=== PATIENT | female | born 1965 | race Caucasian/White ===

== ENCOUNTER 2017-01-10 04:14 | Emergency (ER) | payer OTHER, MEDICARE ==
[~2017-01-10] VITALS: Ht 154.9 cm; Wt 49.9 kg
[2017-01-10 04:15] VITALS: BP 133/91; PULSE 112; RESP 20; TEMP 98.5; O2SAT 96
--- NOTE | 2017-01-10 04:15 | NUR ---
Patient to ER bed 5 to gown for evaluation. Side rails up. Report given to CHRISTY MANDEL.
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
--- NOTE | 2017-01-10 04:45 | NUR ---
Radiology at bedside for xray.
--- NOTE | 2017-01-10 04:51 | NUR ---
Dr. Awan at bedside evaluating patient.
[2017-01-10] MEDS ORDERED: DIPHENHYDRAMINE INJ 50 MG/ML VIAL IM ONE (05:00)
[2017-01-10] MEDS ORDERED: LORazepam 2 MG/ML VIAL (FOR ER USE) IM ONE (05:00)
--- NOTE | 2017-01-10 05:05 | NUR ---
Pt went bathroom and would not come out after several requests.
--- NOTE | 2017-01-10 05:07 | NUR ---
Pt came out of bathroom and pacing back and forth shouting and looking for exit. Then walked further inside the hospital and then walked out through exit doors. Staff ran after pt explaining to give medication but patient continued going towards exit. After 2 minutes patient returned to room. Security and 2 RNs and MT were in the room while medication was being given.
--- NOTE | 2017-01-10 06:15 | NUR ---
Patient resting quietly, very calm at this time. No acute distress noted. Vital signs within normal range.
--- NOTE | 2017-01-10 08:01 | NUR ---
pt stable and resting, steady rise and fall of chest noted while breathing.
--- NOTE | 2017-01-10 08:15 | NUR ---
Patient sleeping, wakens to name. Denies suicidal or homicidal ideation.
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
--- NOTE | 2017-01-10 09:20 | NUR ---
Called social service manager to ask if could come speak w/ pt regarding discharge plans, [facility] to come.
--- NOTE | 2017-01-10 09:34 | NUR ---
behavioral services tech at bedside
--- NOTE | 2017-01-10 09:45 | NUR ---
Per social service personnel, will come back to speak to pt when is more awake. Pt in stable condition.
--- NOTE | 2017-01-10 10:47 | NUR ---
JOINER NOTE: Pt referred to Ironing Worker by Nurse, Milly, due to pt's homelessness. THERMOFORMING MACHINE OPERATOR attempted to meet with pt twice at bedside. Pt did not respond to her name multiple times. THERMOFORMING MACHINE OPERATOR placed homeless assistance, local [facility] clinics, local food duff, outpatient mental health, and transportation resources near pt's bedside. ER staff to contact Ironing Worker once pt becomes more alert. Ironing Worker will continue to remain available and follow up as needed.
--- NOTE | 2017-01-10 11:13 | NUR ---
Patient sleeping, wakens to name, alert but lethargic, stable condition.
--- NOTE | 2017-01-10 11:29 | NUR ---
Patient is asleep in bed arousible to verbal. Patient is oriented when awoken, not able state where she plans to go after discharge. Director Of Rehabilitative Services repaged. Assumed care of patient.
--- NOTE | 2017-01-10 12:00 | NUR ---
TURRET LATHE TENDER FOLLOW UP NOTE: PIGMENT GRINDER met with pt at bedside for third attempt. Pt appears to be more alert at this time. Pt's speech is garbled and pt provided brief answers to questions asked. Pt denied any recent alcohol or drug use. PIGMENT GRINDER attempted to discuss pt's mental health history, but pt did not respond to any related questions. Pt states that she would like a taxi voucher to go to her mother's house ([address] [place] [id number]) upon discharge. PIGMENT GRINDER confirmed that pt had homeless resources provided to her by PIGMENT GRINDER. Pt did not express any other needs or concerns at this time. PIGMENT GRINDER updated pt's Nurse, Tristan, regarding conversation with pt. PIGMENT GRINDER obtained taxi voucher from [employer] and gave voucher to pt's Nurse. PIGMENT GRINDER placed Homeless Waiver on pt's chart to be completed upon discharge. There does not appear to be any further Social Service interventions required at this time.
--- NOTE | 2017-01-10 12:15 | NUR ---
Patient awoken to verbal and oriented when awake, however patient immediantly returns to sleep. Patient is not alert enough to discharge at this time.
--- NOTE | 2017-01-10 13:45 | NUR ---
Patient remains asleep at this time. Endorsed care to Radha MANDEL.
--- NOTE | 2017-01-10 14:10 | NUR ---
Pt resting in bed at this time, eyes closed, respirations even and unlabored, no s/s of distress.
--- NOTE | 2017-01-10 15:55 | NUR ---
Patient is awake and sitting up in [place] eating lunch. Vitals signs taken. Will continue to monitor.
--- NOTE | 2017-01-10 18:04 | NUR ---
Patient is ambulatory with steady gait agrees to discharge to [place] [facility]. States that she left her belonging there and this is the area where she resisdes. Taxi is enroute for roll picker. Patient refused placment in jail. Patient ID band removed.
[2017-01-10 19:09] VITALS: BP 150/97; PULSE 108; RESP 16; TEMP 98; O2SAT 97
== END 2017-01-10 19:09 | disposition home or self-care (01) ==
LOC: SED 04:14
DX: S62.112A Displaced fracture of triquetrum [cuneiform] bone, left wrist, initial encounter for closed fracture (principal); I10 Essential (primary) hypertension; Y04.0XXA Assault by unarmed brawl or fight, initial encounter; Y93.89 Activity, other specified; Y99.8 Other external cause status; Y92.89 Other specified places as the place of occurrence of the external cause
CPT/HCPCS: 73130; 82962; 96372; 99284; J1200; J2060

== ENCOUNTER 2017-07-19 23:46 | Emergency (ER) | payer OTHER, MEDICARE ==
[~2017-07-19] VITALS: Ht 162.6 cm; Wt 51.7 kg
[2017-07-19 23:46] VITALS: BP_SYST 101
[2017-07-20] MEDS ORDERED: IBUPROFEN 600 MG TABLET PO ONE (00:15)
[2017-07-20 00:30] VITALS: BP_SYST 108
== END 2017-07-20 00:30 | disposition home or self-care (01) ==
LOC: SED 23:46
DX: S76.912A Strain of unspecified muscles, fascia and tendons at thigh level, left thigh, initial encounter (principal); F20.9 Schizophrenia, unspecified; I10 Essential (primary) hypertension; X50.9XXA Other and unspecified overexertion or strenuous movements or postures, initial encounter; Y93.89 Activity, other specified; Y92.89 Other specified places as the place of occurrence of the external cause; Y99.8 Other external cause status
CPT/HCPCS: 99283

== ENCOUNTER 2018-01-13 14:21 | Emergency (ER) | payer OTHER, MEDICARE ==
[~2018-01-13] VITALS: Ht 162.6 cm; Wt 56.7 kg
[2018-01-13 14:28] VITALS: BP_SYST 100
[2018-01-13] MEDS ORDERED: KETOROLAC TROMETHAMINE 30 MG VIAL IM ONE (15:00)
[2018-01-13 15:30] VITALS: BP_SYST 104
== END 2018-01-13 15:30 | disposition home or self-care (01) ==
LOC: SED 14:21
DX: S20.212A Contusion of left front wall of thorax, initial encounter (principal); F20.9 Schizophrenia, unspecified; I10 Essential (primary) hypertension; F41.9 Anxiety disorder, unspecified; F10.20 Alcohol dependence, uncomplicated; X58.XXXA Exposure to other specified factors, initial encounter; Y93.89 Activity, other specified; Y92.89 Other specified places as the place of occurrence of the external cause; Y99.8 Other external cause status; Y90.3 Blood alcohol level of 60-79 mg/100 ml
CPT/HCPCS: 71100; 96372; 99284; J1885

== ENCOUNTER 2019-04-16 22:21 | Emergency (ER) | payer OTHER, MEDICAID ==
[~2019-04-16] VITALS: Ht 162.6 cm; Wt 64.4 kg
[2019-04-16 22:27] VITALS: BP_SYST 144
--- NOTE | 2019-04-16 22:31 | NUR ---
Patient to ER bed 01 to gown for evaluation. Side rails up.
--- NOTE | 2019-04-16 22:35 | NUR ---
Pt is AAO x 4 and ambulatory c/o right ankle pain that happened yesterday. Pt states she jumped over a fence and landed wrong on her foot. Pt stated yesterday her ankle was not swollen but today she noticed it was. Pt unable to rotate ankle without pain. Cap refill < 3 seconds. Pulses are palpable. No other injuries/complaints per patient or noted.
--- NOTE | 2019-04-16 22:49 | NUR ---
Xray at bedside, pt tolerated well
--- NOTE | 2019-04-16 23:05 | NUR ---
ER Dr. Diaz at bedside examining patient.
[2019-04-16] MEDS ORDERED: IBUPROFEN 800 MG TABLET PO ONE (23:15)
[2019-04-16] MEDS ORDERED: ACETAMINOPHEN 500 MG TABLET PO ONE (23:30)
[2019-04-17 00:10] VITALS: BP_SYST 135
--- NOTE | 2019-04-17 00:10 | NUR ---
Patient given written and verbal discharge instructions and verbalizes understanding. ER MD discussed with patient the results and treatment provided. Patient in stable condition. ID arm band removed. Rx of Tylenol and Motrin given. Patient educated on pain management and to follow up with PMD. Pain Scale 0. Opportunity for questions provided and answered. Medication side effect fact sheet provided.
--- NOTE | 2019-04-17 03:21 | NUR ---
Note undone in EDM - 04/17/19 at 0322 by [email or web address] Patient given written and verbal discharge instructions and verbalizes understanding. ER discussed with patient the results and treatment provided. Patient in stable condition. ID arm band removed. Rx of Tylenol and Motrin given. Patient educated on pain management and to follow up with PMD. Pain Scale 0. Opportunity for questions provided and answered. Medication side effect fact sheet provided.
== END 2019-04-17 00:10 | disposition home or self-care (01) ==
LOC: SED 22:21
DX: S90.31XA Contusion of right foot, initial encounter (principal); I10 Essential (primary) hypertension; F20.9 Schizophrenia, unspecified; F41.9 Anxiety disorder, unspecified; X58.XXXA Exposure to other specified factors, initial encounter; Y93.39 Activity, other involving climbing, rappelling and jumping off; Y92.89 Other specified places as the place of occurrence of the external cause; Y99.8 Other external cause status
CPT/HCPCS: 99283

== ENCOUNTER 2019-07-05 18:11 | Emergency (ER) | payer OTHER, MEDICAID ==
[~2019-07-05] VITALS: Ht 162.6 cm; Wt 55.3 kg
[2019-07-05 18:24] VITALS: BP_SYST 128
--- NOTE | 2019-07-05 18:38 | NUR ---
Patient to ER bed 06 to gown for evaluation. Side rails up.
--- NOTE | 2019-07-05 18:39 | NUR ---
Called pt x 1 no answer
--- NOTE | 2019-07-05 18:40 | NUR ---
Called patient x 2 , no answer
[2019-07-05 18:41] VITALS: BP_SYST 128
--- NOTE | 2019-07-05 18:41 | NUR ---
Patient left without being seen.
== END 2019-07-05 18:41 | disposition left against medical advice (07) ==
LOC: SED 18:11
DX: R10.9 Unspecified abdominal pain (principal); Z53.21 Procedure and treatment not carried out due to patient leaving prior to being seen by health care provider

== ENCOUNTER 2019-07-11 17:30 | Emergency (ER) | payer OTHER, MEDICAID ==
[~2019-07-11] VITALS: Ht 162.6 cm; Wt 54.4 kg
[2019-07-11 17:36] VITALS: BP_SYST 156
--- NOTE | 2019-07-11 17:36 | NUR ---
Patient to ST. FRANCIS MEDICAL CENTERfor evaluation. Side rails up. Report given to TEQUILA HAND
--- NOTE | 2019-07-11 17:40 | NUR ---
Patient brought in by [facility] for medical clearance for history of schizophrenia. Patient is screaming expletives and unable to redirect. Patient reports that she has no complaints/injuries. No other other complaints/injuries per patient or as noted. Will continue to monitor.
--- NOTE | 2019-07-11 17:45 | NUR ---
SADIQ Mcdonnell at bedside examining patient.
[2019-07-11 17:55] VITALS: BP_SYST 154
--- NOTE | 2019-07-11 17:55 | NUR ---
[facility] written and verbal discharge instructions and verbalizes understanding. ER MD discussed with patient the results and treatment provided. Patient in stable condition. ID arm band removed. No Rx given. Patient educated on pain management and to follow up with PMD. Pain Scale 0/10 Opportunity for questions provided and answered.
== END 2019-07-11 17:55 ==
LOC: SED 17:30
DX: Z02.89 Encounter for other administrative examinations (principal); I10 Essential (primary) hypertension; E16.2 Hypoglycemia, unspecified; F20.9 Schizophrenia, unspecified; F41.9 Anxiety disorder, unspecified; F10.10 Alcohol abuse, uncomplicated
CPT/HCPCS: 99283

== ENCOUNTER 2021-12-26 12:17 | Emergency (ER) | payer OTHER ==
[~2021-12-26] VITALS: Ht 162.6 cm; Wt 56.7 kg
[2021-12-26 12:17] VITALS: BP_SYST 137
[~2021-12-26 12:17] MED LIST: OLAN5TAB3 PO
--- NOTE | 2021-12-26 12:17 | NUR ---
Pt triaged in H1 per this sign writer letterer or painter.
--- NOTE | 2021-12-26 12:17 | NUR ---
Pt here in custody for medical clearance. No acute complaints. Alert and oriented. Ambualtes with steady gait. Awaiting MD miller. Addendum: 12/26/21 at 1253 by [email or web address] *ambulates*
--- NOTE | 2021-12-26 12:28 | NUR ---
Dr Muhammad to H1 to examine patient
--- NOTE | 2021-12-26 12:50 | NUR ---
Officers given written and verbal discharge instructions and verbalizes understanding. ER MD discussed with patient the results and treatment provided. Patient in stable condition. ID arm band removed. Patient educated on pain management and to follow up with PMD. Pain scale 0/10. Opportunity for questions provided and answered.
== END 2021-12-26 12:50 ==
LOC: SED 12:17
DX: Z02.89 Encounter for other administrative examinations (principal); F17.200 Nicotine dependence, unspecified, uncomplicated; I10 Essential (primary) hypertension
CPT/HCPCS: 99283

== ENCOUNTER 2022-08-02 12:01 | Emergency (ER) | payer OTHER ==
[~2022-08-02] VITALS: Ht 157.5 cm; Wt 43.1 kg
[2022-08-02 12:01] VITALS: BP_SYST 137
--- NOTE | 2022-08-02 12:01 | NUR ---
Patient to ER CH1 to gon for evaluation. Side rails up.
--- NOTE | 2022-08-02 12:02 | NUR ---
ER DR. VALDERRAMA EXAMINING PT
[2022-08-02 12:06] VITALS: BP_SYST 137
--- NOTE | 2022-08-02 12:06 | NUR ---
Patient given written and verbal discharge instructions and verbalizes understanding. ER MD discussed with patient the results and treatment provided. Patient in stable condition. ID arm band removed. NO Rx given. Patient educated on pain management and to follow up with PMD. Pain Scale 0/10. Opportunity for questions provided and answered. Medication side effect fact sheet provided.
== END 2022-08-02 12:06 | disposition home or self-care (01) ==
LOC: SED 12:01
DX: Z02.89 Encounter for other administrative examinations (principal); I10 Essential (primary) hypertension; F15.10 Other stimulant abuse, uncomplicated; F12.90 Cannabis use, unspecified, uncomplicated; Z79.899 Other long term (current) drug therapy
CPT/HCPCS: 99283